=== PATIENT | male | born 1950 | race Caucasian/White ===

== ENCOUNTER 2016-04-05 10:11 | Inpatient (IN) | payer MEDICARE, MEDICAID ==
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
[2016-04-05 10:50] VITALS: BP 136/84
[2016-04-05 11:42] LABS: % BASOPHILS 0.3 % (0.0-2.0); % EOSINOPHILS 3.7 % (0.0-5.0); % LYMPHOCYTES 12.9 % (20.0-50.0); % MONOCYTES 11.2 % (2.0-10.0); % NEUTROPHILS 71.9 % (40.0-80.0); HEMOGLOBIN 11.8 gm/dL (13.2-17.3); MEAN CELL VOLUME 85.7 fl (80-99); MEAN CORPUSCULAR HEMOGLOBIN 29.4 pg (26.0-30.0); MEAN CORPUSCULAR HGB CONC 34.4 pg (28.0-36.0); MEAN PLATELET VOLUME 7.9 fl; NEUTROPHILE ABSOLUTE 2.5 Th/cmm (1.8-8.0); RED CELL DISTRIBUTION WIDTH 13.2 % (11.5-20.0)
[2016-04-05 11:45] LABS: HEMATOCRIT 34.3 % (39.0-49.0); PLATELET COUNT 222 Th/cmm (150-400); WHITE BLOOD COUNT 3.4 Th/cmm (4.8-10.8)
[2016-04-05 11:58] LABS: ALB/GLOB RATIO 0.9 (1.0-1.8); ALKALINE PHOSPHATASE 51 U/L (34-104); ANION GAP 9.2 (7.0-16.0); BILIRUBIN,TOTAL 0.5 mg/dL (0.3-1.0); BUN - UREA NITROGEN 14 mg/dL (7-25); BUN/CREATININE RATIO 15.6; CARBON DIOXIDE 26.5 mEq/L (21.0-31.0); CHLORIDE 101 mEq/L (98-107); CREATININE - SERUM 0.9 mg/dL (0.7-1.3); GLUCOSE 96 mg/dL (70-105); POTASSIUM SERUM 3.7 mEq/L (3.5-5.1); SGOT 15 U/L (13-39); SGPT/ALT 7 U/L (7-52); SODIUM SERUM 133 mEq/L (136-145)
[2016-04-05 13:06] LABS: URINE BILIRUBIN NEGATIVE (NEGATIVE); URINE BLOOD NEGATIVE (NEGATIVE); URINE COLOR YELLOW; URINE GLUCOSE (UA) NEGATIVE (NEGATIVE); URINE KETONE NEGATIVE (NEGATIVE); URINE PROTEIN NEGATIVE (NEGATIVE); URINE UROBILINOGEN 0.2 E.U./dL (0.2 - 1.0)
[2016-04-05 13:07] LABS: URINE BACTERIA NONE SEEN /hpf (NONE SEEN); URINE EPITHELIAL CELLS FEW /lpf (FEW); URINE RBC 0-2 /hpf (0-5); URINE WBC 0-2 /hpf (0-5)
[2016-04-05 13:08] LABS: AMPHETAMINE URINE NEGATIVE (NEGATIVE); BARBITURATES URINE NEGATIVE (NEGATIVE)
[2016-04-05] MEDS ORDERED: Magnesium Hydroxide (MOM) 30 mL UDC PO PRN (21:37)
--- NOTE | 2016-04-06 09:28 | Diagnostic Imaging Report ---
Portable chest x-ray History: Pain Allowing for portable technique the heart size is normal. No focal pulmonary parenchymal processes. No hilar or mediastinal abnormalities. Impression: No acute abnormalities.
[2016-04-06] MEDS: Multivitamin Tab PO SCH (09:37)
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
[2016-04-07] MEDS: Multivitamin Tab PO SCH (11:02)
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
--- NOTE | 2016-04-08 03:41 | Progress Notes ---
SUBJECTIVE: The patient was seen, discussed with staff, chart reviewed. Still isolative, guarded, still paranoid, irritable and still keeping to himself. The patient's insight remains poor and judgment remains impaired. ASSESSMENT: Schizoaffective disorder in psychotic phase. PLAN: We will continue stabilization, continue supportive measures, continue to monitor closely. JOB# [id number]
[2016-04-08] MEDS: Multivitamin Tab PO SCH (09:34)
[2016-04-08] MEDS: Miconazole Nitrate 2% Antifungal Wound Cream 4 oz. Tube TP SCH (18:05)
--- NOTE | 2016-04-09 04:48 | Progress Notes ---
SUBJECTIVE: The patient was seen, discussed with staff. Still guarded, paranoid. Still irritable. Still episodes of talking to himself. His insight is poor. Judgment remains impaired; however, he is taking his medications, does not appear to have any side effects. ASSESSMENT: Schizophrenia, paranoid type. PLAN: We will continue stabilization. Continue medication management. Continue supportive measures. JOB# [id number]
[2016-04-09] MEDS: Multivitamin Tab PO SCH (09:28)
[2016-04-09] MEDS: Miconazole Nitrate 2% Antifungal Wound Cream 4 oz. Tube TP SCH ×2 (09:29→17:36)
--- NOTE | 2016-04-10 02:54 | Progress Notes ---
SUBJECTIVE: The patient was seen, discussed with staff, and chart reviewed. Still anxious, guarded, still paranoid, disheveled, poor hygiene, has not been showering. The patient also has been isolative at times. The patient on the other hand is taking his medications, does not appear to have any side effects. His insight is still poor and judgment is still impaired. ASSESSMENT: The patient is still in psychotic phase. PLAN: We will continue medication management. Continue stabilization. Continue Seroquel 100 mg p.o. q.a.m. and 200 mg p.o. at bedtime. JOB# [id number]
[2016-04-10] MEDS: Miconazole Nitrate 2% Antifungal Wound Cream 4 oz. Tube TP SCH ×2 (08:52→17:10)
[2016-04-10] MEDS: Multivitamin Tab PO SCH (08:52)
[2016-04-10 14:27] LABS: QUETIAPINE SEE REF. LAB REPORT; SEROQUEL SEE REF. LAB REPORT
[2016-04-10] MEDS: OLANZapine 5 mg Oral Disintegrating Tab PO SCH (20:39)
--- NOTE | 2016-04-10 23:55 | Progress Notes ---
SUBJECTIVE: The patient was seen today, remains disheveled, unkempt and poor hygiene. He is refusing ____, still paranoid, talking to himself and wandering on the unit aimlessly. The patient's insight is poor and judgment is impaired. ASSESSMENT: The patient still in psychotic phase, highly disorganized. PLAN: We will continue stabilization, add Zyprexa 2.5 mg p.o. at bedtime. The patient is in agreement because he does not want to increase his Seroquel dose, monitor closely. JOB# [id number]
[2016-04-11] MEDS: Multivitamin Tab PO SCH (08:52)
[2016-04-11] MEDS: Miconazole Nitrate 2% Antifungal Wound Cream 4 oz. Tube TP SCH ×2 (08:52→17:41)
[2016-04-11] MEDS: OLANZapine 5 mg Oral Disintegrating Tab PO SCH (21:05)
--- NOTE | 2016-04-12 09:15 | Progress Notes ---
SUBJECTIVE: The patient was seen. Still paranoid, anxious, irritable, still easily agitated, hyperverbal and continues to have mood swings. Insight is still poor. Judgment remains impaired. ASSESSMENT: The patient still in psychotic phase. PLAN: We will continue hospitalization. Continue supportive measure, continue medication management. JOB# [id number]
[2016-04-12] MEDS: Multivitamin Tab PO SCH (11:09)
[2016-04-12] MEDS: Miconazole Nitrate 2% Antifungal Wound Cream 4 oz. Tube TP SCH ×2 (11:09→17:34)
[2016-04-12] MEDS: OLANZapine 5 mg Oral Disintegrating Tab PO SCH (21:09)
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
[2016-04-13] MEDS: Multivitamin Tab PO SCH (09:00)
[2016-04-13] MEDS: Miconazole Nitrate 2% Antifungal Wound Cream 4 oz. Tube TP SCH ×2 (09:00→17:22)
[2016-04-13] MEDS: OLANZapine 5 mg Oral Disintegrating Tab PO SCH (20:48)
--- NOTE | 2016-04-14 05:26 | Progress Notes ---
SUBJECTIVE: I met this patient, discussed with staff, still paranoid, disorganized, episodes of rambling, irritability is noted. This patient is always taking his medications, does not appear to have any side effects. His insight is still limited, judgment remains impaired. ASSESSMENT: The patient is still in psychotic phase. PLAN: Continue stabilization, continue supportive measures and continue to monitor closely. Increase Zyprexa to 5 mg p.o. at bedtime. [facility]# [id number]
[2016-04-14] MEDS: Multivitamin Tab PO SCH (08:47)
[2016-04-14] MEDS: Miconazole Nitrate 2% Antifungal Wound Cream 4 oz. Tube TP SCH ×2 (08:47→16:19)
[2016-04-14] MEDS: OLANZapine 5 mg Oral Disintegrating Tab PO SCH (20:33)
--- NOTE | 2016-04-15 03:49 | Progress Notes ---
SUBJECTIVE: The patient was seen, discussed with staff, chart reviewed. Still disorganized, confused. Still irritable, somewhat paranoid. The patient, however, is taking his medications, does not appear to have any side effects. His dose of Zyprexa was increased to 5 mg at bedtime. His insight is still limited. ASSESSMENT: Schizophrenia, paranoid type versus schizoaffective disorder. PLAN: We will continue hospitalization, continue stabilization. The patient is also found to show some mild symptoms of dementia. He is somewhat forgetful to short term. We will add Aricept 5 mg by mouth daily. JOB# [id number]
[2016-04-15] MEDS: Multivitamin Tab PO SCH (08:59)
[2016-04-15] MEDS: Miconazole Nitrate 2% Antifungal Wound Cream 4 oz. Tube TP SCH ×2 (08:59→16:53)
[2016-04-15] MEDS: OLANZapine 5 mg Oral Disintegrating Tab PO SCH (20:33)
--- NOTE | 2016-04-16 05:13 | Progress Notes ---
SUBJECTIVE: I met this patient, discussed with staff. Still paranoid, talking to himself, still wandering on the unit, requiring redirecting by staff. Some agitation is noted. However, he is taking his medications, does not appear to have any side effects. His insight is still limited. Judgment remains impaired. ASSESSMENT: Schizophrenia, paranoid type. PLAN: We will continue hospitalization, continue stabilization, continue medication management. [facility]# [id number]
[2016-04-16] MEDS: Multivitamin Tab PO SCH (09:01)
[2016-04-16] MEDS: Miconazole Nitrate 2% Antifungal Wound Cream 4 oz. Tube TP SCH ×2 (09:05→18:00)
[2016-04-16] MEDS: OLANZapine 5 mg Oral Disintegrating Tab PO SCH (20:29)
--- NOTE | 2016-04-17 03:07 | Progress Notes ---
SUBJECTIVE: The patient was seen and discussed with staff. Still talking to himself at times, some paranoia, episodes of irritability; however, he is taking his medications. Sleep has improved. The patient's insight is still limited. The patient is followed by Dr. Castillo for his edema on the left leg. The patient also is being treated for his UTI with Cipro. ASSESSMENT: The patient still in psychotic phase. PLAN: Continue hospitalization. Continue to monitor closely. JOB# [id number]
[2016-04-17] MEDS: Multivitamin Tab PO SCH (09:59)
[2016-04-17] MEDS: Miconazole Nitrate 2% Antifungal Wound Cream 4 oz. Tube TP SCH ×2 (09:59→17:44)
[2016-04-17] MEDS: OLANZapine 5 mg Oral Disintegrating Tab PO SCH (20:49)
[2016-04-18] MEDS: Multivitamin Tab PO SCH (08:26)
[2016-04-18] MEDS: Miconazole Nitrate 2% Antifungal Wound Cream 4 oz. Tube TP SCH ×2 (08:53→17:33)
[2016-04-18] MEDS ORDERED: OLANZapine 5 mg Oral Disintegrating Tab PO SCH (15:52)
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
--- NOTE | 2016-04-19 03:36 | Progress Notes ---
SUBJECTIVE: The patient was seen, discussed with staff, and chart reviewed. Still paranoid, guarded, still easily agitated, though reports fair sleep at night time. The patient's insight is still limited. Judgment remains impaired. The patient is still with fragmented thought process. ASSESSMENT: The patient is still in psychotic phase. PLAN: We will continue stabilization. Continue supportive measures. Increase Zyprexa to 7.5 mg p.o. at bedtime. [facility]# [id number]
[2016-04-19] MEDS: Multivitamin Tab PO SCH (08:53)
[2016-04-19] MEDS: Miconazole Nitrate 2% Antifungal Wound Cream 4 oz. Tube TP SCH ×2 (10:52→17:43)
[2016-04-19] MEDS: OLANZapine 5 mg Oral Disintegrating Tab PO SCH (21:12)
--- NOTE | 2016-04-20 03:08 | Progress Notes ---
SUBJECTIVE: The patient was seen. Remains superficial, disorganized, still mumbling to himself, talking to himself, and still actively hallucinating. Some agitation, but definitely less compared to time of admission. ASSESSMENT: The patient is still in psychotic phase. PLAN: We will increase Zyprexa to 10 mg p.o. at bedtime. Continue stabilization. Continue medication management. [facility]# [id number]
[2016-04-20] MEDS: Multivitamin Tab PO SCH (08:34)
[2016-04-20] MEDS: Miconazole Nitrate 2% Antifungal Wound Cream 4 oz. Tube TP SCH ×2 (08:39→18:44)
[2016-04-20] MEDS: OLANZapine 5 mg Oral Disintegrating Tab PO SCH (20:54)
--- NOTE | 2016-04-21 03:58 | Progress Notes ---
TIME PATIENT SEEN: 10:30 a.m. SUBJECTIVE: Staff was spoken to. The patient is interviewed. Mood is noted to be dysphoric. Coping skills are noted to be poor. The patient is still responding to internal stimuli. The patient has paranoid delusions, but denies any command hallucinations. No side effects to the medications are noted. The patient has elephantiasis of the right lower extremity and staff are trying to help him. ASSESSMENT: The patient is still psychotic. PLAN: To continue the patient with the supportive therapy. I encouraged the patient to verbalize the concerns rather than to act out. JOB# [id number] LORI
[2016-04-21] MEDS: Multivitamin Tab PO SCH (08:30)
[2016-04-21] MEDS: Miconazole Nitrate 2% Antifungal Wound Cream 4 oz. Tube TP SCH ×2 (08:44→17:01)
[2016-04-21] MEDS: OLANZapine 5 mg Oral Disintegrating Tab PO SCH (20:24)
--- NOTE | 2016-04-22 01:09 | Progress Notes ---
TIME PATIENT SEEN: 9:00 a.m. SUBJECTIVE: Staff was spoken to. The patient is interviewed. Mood is noted to be irritable. The patient is stating that he is complained of frustrated for being in here too long. No side effects to the medications are noted. The patient has been having difficult time to cope with the stress. The patient is having difficult time to cpoe. The patient has been able to deal with his swelling of the lower extremity. No side effects to the medications are noted. The patient is being provided with the supportive therapy and encouraged to comply with the treatment. At this time, the patient is awaiting for placement. JOB# [id number] LORI
[2016-04-22] MEDS: Multivitamin Tab PO SCH (08:36)
[2016-04-22] MEDS: Miconazole Nitrate 2% Antifungal Wound Cream 4 oz. Tube TP SCH ×2 (08:37→16:13)
[2016-04-22] MEDS: OLANZapine 10 mg Oral Disintegrating Tab PO SCH (21:02)
[2016-04-23] MEDS: Multivitamin Tab PO SCH (08:29)
[2016-04-23] MEDS: Miconazole Nitrate 2% Antifungal Wound Cream 4 oz. Tube TP SCH ×2 (08:32→16:17)
--- NOTE | 2016-04-23 16:33 | Progress Notes ---
SUBJECTIVE: The patient was seen, discussed with staff. Still restless, paranoid, still episodes of talking to himself, some agitation, but much less compared to time of admission. The patient is taking his medication, has no side effects. The patient is tolerating current dose of Seroquel and Zyprexa. The patient would not lateral high dose of Seroquel, but he is willing to take both antipsychotics. The patient is showing some improvement since he was started on Zyprexa and he is easy to redirect. ASSESSMENT: Schizoaffective disorder, still in psychotic phase. PLAN: Continue medication management. Continue supportive measures, continue to monitor closely. JOB# [id number]
[2016-04-23] MEDS: OLANZapine 10 mg Oral Disintegrating Tab PO SCH (20:35)
[2016-04-24] MEDS: Multivitamin Tab PO SCH (08:36)
[2016-04-24] MEDS: Miconazole Nitrate 2% Antifungal Wound Cream 4 oz. Tube TP SCH ×2 (08:37→16:33)
--- NOTE | 2016-04-24 17:50 | Progress Notes ---
SUBJECTIVE: I met this patient, still anxious, restless; however, his agitation has decreased and he is taking his medication. Sleep is fair. The patient's insight is still limited, still with some paranoia. ASSESSMENT: Schizoaffective disorder. PLAN: We will continue stabilization, continue hospitalization. Overall, the patient's condition slowly stabilizing. Placement is being assessed. JOB# [id number]
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
== END 2016-04-24 19:50 | DRG 885 ==
LOC: ER 10:11 → GERO 15:55
DX: F20.0 Paranoid schizophrenia (principal); C85.95 Non-Hodgkin lymphoma, unspecified, lymph nodes of inguinal region and lower limb; N39.0 Urinary tract infection, site not specified; H26.9 Unspecified cataract; F29 Unspecified psychosis not due to a substance or known physiological condition; Z87.891 Personal history of nicotine dependence
CPT/HCPCS: 36415-UA; 71010-TC; 80053-TC; 80299-90; 81001-TC; 84443-TC; 85025-TC; 90899; 93005; G0410; J7030; Z7610

== ENCOUNTER 2017-02-01 15:41 | Emergency (ER) | payer MEDICARE, MEDICAID ==
--- NOTE | 2017-02-01 16:21 | ED Physician Chart ---
ED Chief Complaint/HPI - Patient Information Date Seen:: 02/01/17 Time Seen:: 16:06 Chief Complaint:: Feeling anxious since earlier today. History of Present Illness:: Pt walked in this ER because of feeling anxious since late morning today. Pt states that he has h/o anxiety disorder, depression and schizoaffective disorder. Pt has been followed by his psychiatrist Dr. River (? sp). Pt denies depression. Pt denies any S.I. or H.I. Pt denies auditory and visual hallucination. Pt denies any bodily pain or discomfort. Pt states that he just wants to have medication to calm him. Pt does not want any lab studies or other treatment. Allergies:: Allergies Allergy/AdvReac Type Severity Reaction Status Date / Time No Known Allergies Allergy Verified 02/01/17 15:44 Vitals:: Vital Signs - 8 hr 02/01/17 15:46 Temp 99.0 F HR 96 RR 18 BP 123/84 O2 Sat % 96 Historian:: Patient Family MD/PCP:: unknown LMP:: N/A Review:: Nurse's Note Reviewed ED Review of Systems - Review of Systems General/Constitutional: No fever, No chills, No weight loss, No weakness, Edema (chronic RLE lymphedema for almost 2 years that has gradually improved.), No loss of appetite Skin: No rash, No bruising Head: No headache, No light-headedness Eyes: No loss of vision, No pain, No diplopia ENT: No earache, No nasal drainage, No sore throat Neck: No neck pain, No swelling, No thyromegaly, No stiffness, No mass noted Cardio Vascular: No chest pain, No palpitations, No PND, No orthopnea, No edema Pulmonary: No SOB, No cough, No wheezing GI: No nausea, No vomiting, No diarrhea, No pain G/U: No dysuria, No frequency, No hematuria Musculoskeletal: No bone or joint pain, No back pain Endocrine: No polyuria, No polydipsia Psychiatric: Prior psych history, No depression, Anxiety, No suicidal ideation, No homicidal ideation, No auditory hallucination, No visual hallucination ED Past Medical History - Past Medical History Past Medical History: Other (Chronic RLE lymphedema.) Social History: Non Smoker, Alcohol (rare use), No Drug Use, , Other ( lives in a usp.) Employment:: Retired. Surgical History: other (Surgical resection of a mass in RLQ of abdomen) Psychiatricy History: Depression, Schizophrenia, Other (Anxiety disorder.) Medication: Reviewed Family Medical History - Family Member Mother History Unknown: Yes Ethnicity: Unknown Living Status: Unknown Hx Family Hypertension: Yes Father Ethnicity: Non- Living Status: Still Living Hx Family Coronary Artery Disease: Yes ED Physical Exam - Physical Examination General/Constitutional: Awake, Well-developed, well-nourished, Alert, No distress, Non-toxic appearing, Ambulatory Other Gen/Cons comments:: Breathes comfortably, speaks clearly, interacts normally except appears to be anxious. Head: Atraumatic Eyes: Lids, conjuctiva normal, PERRL, EOMI Skin: Well hydrated ENMT: External ears, nose nl, Nasal exam nl, Oropharynx nl Neck: Nontender, Full ROM w/o pain, No nuchal rigidity, No mass, No stridor Respiratory: Nl effort/Exclusion, Clear to Auscultation, No Wheeze/Rhonchi/Rales Cardio Vascular: RRR, No murmur, gallop, rubs GI: No tenderness/rebounding/guarding, No organomegaly, Normal BS's, Nondistended, No mass/bruits Other Extremities comments:: Chronic changes with lichenification and edema in R lower leg. No erythema or open wounds. Nontender. Findings are c/w lymphedema. Neuro/Psych: Alert/oriented (oriented x 3.), Normal gait, No focal deficits ED Septic Shock - . Is Septic Shock (SBP<90, OR Lactate>4 mmol\L) present?: No - <6hrs of presentation: Vital Signs: Vital Signs - 8 hr 02/01/17 15:46 Temp 99.0 F HR 96 RR 18 BP 123/84 O2 Sat % 96 ED Reassessment (Disposition) - Reassessment Reassessment:: 1938 Pt has been observed for prolonged period. Pt remains calm and no longer anxious. Pt is alert and oriented x 3. Pt has normal affect. No depressed mood. No S.I. or H.I. No hallucination. Pt states that he will follow with his psychiatrist Dr. River tomorrow. Pt requests to leave now and does not want further observation/management in hospital. Aftercare instructions have been given. His brother Francisco Javier will drive him [facility]. Reassessment Condition:: Improved - Diagnosis Diagnosis:: Anxiety disorder. Stable and currently asymptomatic. - Aftercare/Follow up Instructions Aftercare/Follow-Up Instructions:: Refer to Discharge Instructions Notes:: Bedrest for today. Relaxation techniques as given. Drowsiness precautions given with the use of Ativan. F/U with his psychiatrist Dr. River in one day for recheck. Return to ER immediately if condition worsens or if any further questions/problems. Medication Prescribed:: None - Patient Disposition Discharge/Transfer:: Residential/Boarding Care Time:: 19:50 Condition at Disposition:: Stable, Improved ED Discharge Plan - Patient Disposition Admit/Discharge/Transfer: PT DISCHARGED HOME Condition at Disposition: Improved Instructions: Anxiety and Panic Attacks, Jhrj-[id number] Additional Instructions: Follow up with your primary care provider in 1-2 days and return to ED if symptoms worsen.
== END 2017-02-01 20:10 | disposition home or self-care (01) ==
LOC: ER 15:41
DX: F41.9 Anxiety disorder, unspecified (principal)
CPT/HCPCS: Z7502